=== PATIENT | female | born 1985 | race Caucasian/White ===

== ENCOUNTER 2021-02-18 13:24 | Outpatient (CLI) | payer BC, SELFPAY ==
--- NOTE | ~2021-02-18 | MR_ITS ---
EXAMINATION: MR pituitary wo/w con DATE: 02/18/2021 14:30 INDICATION: Hyperprolactinemia. TECHNIQUE: Magnetic resonance imaging (MRI) of the brain and brainstem was performed without and with 14 mL MultiHance intravenous contrast. Whole-brain sequences included sagittal T1-weighted FSE, axia l diffusion-weighted FS EPI, axial T2*-weighted GRE, axial T2-weighted FLAIR Propeller, and axial T2- weighted Propeller. Small eptlb-cp-mmtl sequences included sagittal and coronal T1-weighted FSE cente red at the pituitary. Postcontrast sequences included small vverd-sh-clej coronal T1-weighted FSE in a time course and sagittal T1-weighted FSE and whole-brain axial T1-weighted FSE. Apparent diffusion coefficient (ADC) maps were created. COMPARISON: None. FINDINGS: The pituitary is normal in size with height of 6 mm and concave superior margin. There are 3 foci of nonspecific increased T2-weighted signal intensity in the cerebral white matter, which is w ithin normal limits for the patient's age. There is no intracranial hemorrhage, acute infarction, or abnormal intracranial mass lesion. The ventricles are normal in size. The mastoid air cells are norm al. The paranasal sinuses are clear. The orbits are normal. IMPRESSION: 1. Normal brain. Normal pituitary. Reviewed, dictated and finalized at location B.
[2021-02-18 13:58] LABS: Estimated Glomerular Filt Rate > 60
== END 2021-02-18 13:25 | disposition home or self-care (01) ==
PROVIDERS: PCP Family Medicine; Visit Provider Obstetrics & Gynecology Gynecology
DX: E22.1 Hyperprolactinemia (principal)
CPT/HCPCS: 70553; A9577

== ENCOUNTER → 2021-02-25 13:14 | Outpatient (CLI) | payer BC, SELFPAY ==
--- NOTE | ~2021-02-25 | US_ITS ---
EXAMINATION: US thyroid DATE: 02/25/2021 13:39 INDICATION: Hypothyroidism. Fatigue. TECHNIQUE: Multiple ultrasound images of the thyroid were obtained. COMPARISON: None. FINDINGS: The right thyroid lobe measures 5.4 x 1.7 x 1.7 cm. The left thyroid lobe measures 4.0 x 1.2 x 1.6 c m. In the right thyroid lobe, there is an 11 mm solid, isoechoic, nahbw-zkxe-lklz nodule with ill-de fined margin without echogenic foci (TI-RADS TR3). In the right thyroid lobe, there is a 6 mm solid, hypoechoic, rqaxm-vjzp-nqjv nodule with ill-defined margin without echogenic foci (TR4). In the right thyroid lobe, there is a 1.5 cm solid, hypoechoic, rfuuv-zoku-lnep nodule with ill-defined margin wi thout echogenic foci (TR4). In the left thyroid lobe, there is an 8 mm solid, hypoechoic, wider-than- tall nodule with ill-defined margin without echogenic foci (TR4). IMPRESSION: 1. Thyroid nodules. Ultrasound-guided fine-needle aspiration of the 1.5 cm right thyroid nodule is re commended. Reviewed, dictated and finalized at location A. IMPRESSION: 1. Thyroid nodules. Ultrasound-guided fine-needle aspiration of the 1.5 cm righ t thyroid nodule is recommended.
== END ==
PROVIDERS: PCP Family Medicine; Visit Provider Nurse Practitioner
DX: E07.9 Disorder of thyroid, unspecified (principal); E03.9 Hypothyroidism, unspecified; E04.2 Nontoxic multinodular goiter
CPT/HCPCS: 76536

== ENCOUNTER 2021-04-20 15:46 | Outpatient (CLI) | payer BC, SELFPAY ==
[2021-05-12 18:34] VITALS: BMI 27.4
--- NOTE | 2021-05-12 18:34 | WPDHOMESLEEP ---
Sleep Study - Home Unattended Date of Study: 04/20/21 Ordering Provider: Jeri Paige MD Interpreting Provider: Jeri Paige MD Home Sleep Study Type: Apnea Link Air Height: 1.57 m Weight: 68.039 kg Body Mass Index: 27.4 Neck Circumference (inches): 13.25 [place]: 11 Reason for Sleep Study Hypersomnia Sleep History Laura Schroeder is a 35 year old female with fatigue for the last 2 years, initially noted while she was driving, then began happening all day. She has snoring and non-refreshing sleep. There is a family history of sleep diagnoses with her Mother falling asleep easily and her mother sister being treated for sleep apnea. She was treated for depression without improvement. She does not awaken from sleep feeling short of breath or awaken at night with heartburn, belching or coughing. She rarely snores and others do not really complain about it. She frequently has trouble sleeping if she has a cold. She does not gasp for breath at night, does not have breathing problems at night observed by others, does not sweat excessively at night or notice her heart pounding or beating irregularly at night. She occasionally falls asleep during the day but not involuntarily and not while driving. She does fall not have loss of muscle tone with strong emotion. She rarely has daytime difficulties due to excessive sleepiness. She does not currently feel paralyzed on waking or falling asleep. She does not have vivid dreamlike scenes upon awakening or falling asleep and does not feel afraid to go to sleep. She does not have nightmares. She rarely remembers her dreams. She occasionally has racing thoughts. She rarely feels sad or depressed. She occasionally has anxiety. She does not have muscular tension, does not notice parts of her body jerking and she does not kick at night. She frequently has crawling and aching feelings in her legs and leg pain during the night. She occasionally has morning jaw pain. She does not grind her teeth during sleep. She frequently has bothered by pain during the day. She rarely is awakened by pain at night. She frequently wakes up feeling stiff in the morning. She rarely wakes up with sore achy muscles. She frequently wakes up with pain in the neck and spine. She has headaches. Normal bedtime is 10:00 p.m., falling asleep within 15-20 minutes, waking once at night while tossing and turning. It takes her about 30 minutes to return to sleep. She wakes the morning at 6:30 a.m.. On the weekends, she goes to bed also at 10:00 p.m. but wakes at 8:30 a.m.. She does not typically take naps. Short naps are not refreshing. She is usually drowsy in the morning for 1 hour or longer. Habits: No tobacco. Caffeine 1-2 servings a day. Alcohol once per week. No recreational drugs. [facility] Past Medical History Medical History (Updated 05/12/21 @ 18:49 by Jeri Paige MD) VAN (generalized anxiety disorder) Nathalie's thyroiditis diagnosed age 8 MDD (major depressive disorder), recurrent episode, moderate MDD (major depressive disorder), recurrent episode, moderate Restless legs syndrome (RLS) Vitamin D deficiency, unspecified Surgical History Surgical History History of removal of ovarian cyst History of tonsillectomy Family History Family History Sibling Family history of mental disorder Patient's sister is in good health Mother Patient's mother is in good health Family history of malignant neoplasm of thyroid Father Family history of diabetes mellitus in first degree relative Social History Social History Social History: Smoking status: Never smoker Second hand tobacco smoke exposure: No Alcohol intake: current Drinks per week: 1 Substance use: never Substance use type: does not use [facility]
== END 2021-04-21 12:55 | disposition home or self-care (01) ==
LOC: ANHCSM 15:46
PROVIDERS: PCP Family Medicine; Visit Provider Internal Medicine Critical Care Medicine
DX: G47.10 Hypersomnia, unspecified (principal); G25.81 Restless legs syndrome
CPT/HCPCS: 95806

== ENCOUNTER → 2021-05-24 09:26 | Outpatient (CLI) | payer BC, SELFPAY ==
--- NOTE | ~2021-05-24 | US_ITS ---
EXAMINATION: US abdomen complete EXAM DATE: 05/24/2021 10:15 INDICATION: R74.8 - Abnormal levels of other serum enzymes. TECHNIQUE: Multiple grayscale and Doppler images of the complete abdomen were obtained (by a technolo gist who performed the scan) and subsequently reviewed. There is no prior study for comparison. FINDINGS: The abdominal aorta is normal in caliber. Visualized portion IVC is patent. The pancreatic head a nd body are normal in appearance. The pancreatic tail is not visualized. The liver has normal echogenicity and contour. There are no focal liver lesions identified. There is no evidence of intrahepatic biliary duct dilation. Portal venous flow was seen in the hepatopedal , normal direction and has normal Doppler waveform. Common bile duct measures 2 mm, which is normal. The gallbladder wall is normal in thickness, with ex pected amount of distention. No sonographic evidence of pericholecystic fluid. There is no cholelit hiases. Technologist performing exam reports patient did not demonstrate sonographic Hastings's sign. Please note that this sign is less reliable in patients who have received pain medication. Right kidney: There is normal contour and echogenicity. It measures 9.3 x 3.7 x 4.5 centimeters. T here are no focal renal lesions identified. There is no hydronephrosis. Left kidney: There is normal contour and echogenicity. It measures 9.8 x 5.7 x 4.4 centimeters. Th ere are no focal renal lesions identified. There is no hydronephrosis. The spleen measures 9.2 centimeters and is morphologically normal. IMPRESSION: 1. Unremarkable complete abdominal ultrasound exam. Reviewed, dictated and finalized at location B.
== END ==
PROVIDERS: PCP Physician Assistant; Visit Provider Physician Assistant
DX: R74.8 Abnormal levels of other serum enzymes (principal)
CPT/HCPCS: 76700

== ENCOUNTER → 2022-03-03 07:58 | Outpatient (CLI) | payer OTHER, SELFPAY ==
--- NOTE | ~2022-03-03 | MMUS_ITS ---
EXAMINATION: MM diagnostic martín BI w sebas, US breast LT limited HISTORY: Palpable lump of the lower inner left breast near the nipple TECHNIQUE: Craniocaudal, mediolateral, and mediolateral oblique 3-D tomosynthesis images of the left breast were performed and synthetic 2-D images were generated. CAD analysis was submitted and interpr eted. High resolution limited left breast ultrasound was performed. COMPARISON: 10/27/2014, 10/17/2014 BREAST PARENCHYMAL COMPOSITION: The breasts are heterogeneously dense, which may obscure small masses . FINDINGS: MAMMOGRAPHIC FINDINGS: There is no suspicious mass, calcification, or architectural distortion in either breast to suggest malignancy. There has been no suspicious interval change. No mammographic correlate is identified for the reported palpable abnormality of the left breast. ULTRASOUND: There is no evidence of focal abnormal solid or cystic mass in the vicinity of the reported palpable abnormality of concern in the left breast. IMPRESSION: 1. No specific mammographic or sonographic correlate is identified for the reported palpable abnormal ity of concern of the left breast. Further evaluation at this time should be based on clinical assess ment. Continued follow-up physical examination is recommended. 2. Recommend routine screening mammography beginning at age 40. BI-RADS Category 1: Negative Reviewed, dictated and finalized at location A. IMPRESSION: 1. No specific mammographic or sonographic correlate is identified for the repo rted palpable abnormality of concern of the left breast. Further evaluation at this time should be based on clinical assessment. Continued follow-up physical examination is recommended. 2. Recommend routine screening mammography beginning at age 40. BI-RADS Category 1: Negative
== END ==
PROVIDERS: PCP Family Medicine; Visit Provider Nurse Practitioner
DX: N63.24 Unspecified lump in the left breast, lower inner quadrant (principal)
CPT/HCPCS: 76642; 77062; 77066; G0279

== ENCOUNTER → 2022-03-17 08:19 | Outpatient (CLI) | payer OTHER, SELFPAY ==
--- NOTE | ~2022-03-17 | MR_ITS ---
EXAMINATION: MR pituitary wo/w con DATE: 03/17/2022 09:19 INDICATION: Hyperprolactinemia. TECHNIQUE: Magnetic resonance imaging (MRI) of the brain and brainstem was performed without and with 14 mL MultiHance intravenous contrast. COMPARISON: Brain MRI 02/18/2021 FINDINGS: The pituitary is normal in size with height of 5 mm and concave superior margin. The infund ibulum is at midline. There is no intracranial hemorrhage, acute infarction, or abnormal intracranial mass lesion. The ventricles are normal in size. The paranasal sinuses are clear. The mastoid air aliya ls are normal. The orbits are normal. IMPRESSION: 1. Normal brain. Normal pituitary. Reviewed, dictated and finalized at location A.
[2022-03-17 08:48] LABS: Estimated Glomerular Filt Rate > 60
== END ==
PROVIDERS: PCP Family Medicine; Visit Provider Obstetrics & Gynecology Gynecology
DX: E22.1 Hyperprolactinemia (principal)
CPT/HCPCS: 70553; A9577

== ENCOUNTER → 2022-11-18 11:13 | Outpatient (CLI) | payer OTHER, SELFPAY ==
--- NOTE | ~2022-11-18 | US_ITS ---
Pelvic ultrasound. Clinical History: Pelvic pain Technique: Realtime transabdominal and transvaginal scanning of the pelvis was performed. Color flow Doppler and Doppler spectral analysis were performed. Findings: The uterus is anteverted. The endometrial stripe has a thickness of 3 mm. IUD appears to b e within satisfactory position. No focal mass is identified. The right ovary measures 3.8 x 2.7 x 3.2 cm. No significant right ovarian or adnexal mass is seen. The left ovary measures 3.2 x 2.5 x 3.3 cm. No significant left ovarian or adnexal mass is seen. Vascular flow present in both ovaries on Doppler spectral analysis. There is no evidence of free fluid in the cul de sac. Impression: IUD appears to be in place. No other significant findings. Reviewed, dictated and finalized at [facility]. LANCE ARTIST Impression: IUD appears to be in place. No other significant findings.
== END ==
PROVIDERS: PCP Family Medicine; Visit Provider Obstetrics & Gynecology Gynecology
DX: R10.2 Pelvic and perineal pain (principal); Z97.5 Presence of (intrauterine) contraceptive device
CPT/HCPCS: 76856

== ENCOUNTER → 2023-03-09 07:53 | Outpatient (CLI) | payer OTHER, SELFPAY ==
--- NOTE | ~2023-03-09 | MMUS_ITS ---
EXAMINATION: MM diagnostic martín BI w sebas, US breast BI complete HISTORY: Bilateral breast pain intermittently for 2 months, involving lateral breasts, extending into axillae TECHNIQUE: ML, MLO and CC 3-D tomosynthesis images of both breasts were performed and synthetic 2-D i mages were generated. Magnification views of right breast. CAD analysis was submitted and interpreted . High resolution bilateral complete breast ultrasound examination including all 4 quadrants and suba reolar areas was performed. COMPARISON: 03/03/2022 bilateral diagnostic mammogram and limited left breast ultrasound examination BREAST PARENCHYMAL COMPOSITION: The breasts are heterogeneously dense, which may obscure small masses . FINDINGS: MAMMOGRAPHIC FINDINGS: Occasional bilateral benign appearing microcalcifications. No suspicious mass or architectural distor tion, malignant calcification, skin thickening or retraction or significant new or developing density is detected. . ULTRASOUND: No suspicious mass or shadowing of either breast is evident. Circumscribed 2 x 3 mm hypoechoic lesion of left breast at 3:00 1 cm from the nipple, without interna l vascularity or posterior shadowing, benign in appearance. IMPRESSION: 1. Benign findings 2. Routine annual mammographic screening is recommended BI-RADS Category 2: Benign finding(s). Reviewed, dictated and finalized at location A. IMPRESSION: 1. Benign findings 2. Routine annual mammographic screening is recommended BI-RADS Category 2: Benign finding(s).
== END ==
PROVIDERS: PCP Family Medicine; Visit Provider Nurse Practitioner
DX: N64.4 Mastodynia (principal)
CPT/HCPCS: 76641; 77062; 77066; G0279

== ENCOUNTER 2023-04-06 08:39 | Outpatient (CLI) | payer OTHER, SELFPAY ==
--- NOTE | ~2023-04-06 | XR_ITS ---
EXAMINATION: XR abdomen/kub 1V INDICATION: Pelvic pain and bloating TECHNIQUE: Supine views of the abdomen were obtained on 2 radiographs. COMPARISON: None FINDINGS: A moderate volume of colonic stool is present. The bowel gas pattern is normal. An IUD is n oted. The visualized lung bases are clear. IMPRESSION: 1. No radiographic correlate for the patient's symptoms. Reviewed, dictated and finalized at location L.
== END 2023-04-06 08:40 | disposition home or self-care (01) ==
PROVIDERS: PCP Family Medicine; Visit Provider Family Medicine
DX: R19.8 Other specified symptoms and signs involving the digestive system and abdomen (principal); R10.32 Left lower quadrant pain
CPT/HCPCS: 74018

== ENCOUNTER → 2023-09-15 13:28 | Outpatient (CLI) | payer OTHER, SELFPAY ==
--- NOTE | ~2023-09-15 | CT_ITS ---
CT of the Abdomen and Pelvis: Indication: Left lower quadrant Technique: 2.5 mm axial scans were obtained through the abdomen and pelvis following intravenous adm inistration of 100 cc of Omnipaque 350. Dose reduction technique was used on this scan by utilizing a utomated exposure control and iterative reconstruction technique. The dose-length product (DLP) was 5 08.17 mGy-cm. Findings: Scans through the lung bases are unremarkable. The liver, spleen, pancreas, gallbladder, adrenals and kidneys are within normal limits. No evidence of aortic aneurysm. No lymphadenopathy. No bowel obstruction or bowel wall thickening. There is no evidence to suggest acute appendicitis. Images through the pelvis were performed. Urinary bladder unremarkable. IUD in place. No adnexal mass seen. No ascites. Impression: IUD in place, otherwise unremarkable exam. Reviewed, dictated and finalized at [facility]. OR DIRECTOR FINANCE Impression: IUD in place, otherwise unremarkable exam.
== END ==
PROVIDERS: PCP Physician Assistant; Visit Provider Physician Assistant
DX: R10.32 Left lower quadrant pain (principal); R19.8 Other specified symptoms and signs involving the digestive system and abdomen; Z97.5 Presence of (intrauterine) contraceptive device
CPT/HCPCS: 74177; Q9967

== ENCOUNTER 2024-02-12 11:53 | Outpatient (CLI) | payer OTHER, SELFPAY ==
--- NOTE | ~2024-02-12 | XR_ITS ---
XR chest 2V DATE: 02/12/2024 12:14 INDICATION: Dyspnea TECHNIQUE: 2 views COMPARISON: None FINDINGS: Normal heart size. Bilateral hyperinflation. No pulmonary infiltrate or consolidation, pleu ral effusion or pulmonary vascular congestion or pneumothorax is detected. IMPRESSION: Bilateral hyperinflation; no active pulmonary disease Reviewed, dictated and finalized at location B.
== END 2024-02-12 11:54 ==
LOC: MICIMG 11:55
PROVIDERS: PCP Family Medicine; Visit Provider Physician Assistant
DX: J98.4 Other disorders of lung (principal)
CPT/HCPCS: 71046

== ENCOUNTER 2024-04-12 08:53 | Outpatient (CLI) | payer OTHER, SELFPAY ==
--- NOTE | 2024-04-12 16:23 | P.PCNPFT_ITS ---
PFT Procedure Performed PFT Procedure Performed Spirometry with Pre/Post Bronchodilator Plethysmography (Lung Vol) Diffusing Cap (DLCO) Flow Vol Loop PFT Interpretation DOS: 04/12/2024 REQUESTING: Domitila Weir PA-C REASON FOR TESTING: asthma PULMONARY FUNCTION TESTS Results are reliable and reproducible. Repeatability of spirometry FEV1 maneuver pre and post bronchodilator is Grade A. Spirometry: The pre-bronchodilator FEV1 is 3.14 L, 108%, normal. The pre- bronchodilator FVC is 3.79 L, 107%, normal. The FEV1/FVC ratio is 83%. After bronchodilator, the FEV1 is 3.16 L, 108%, no change. The bronchodilator FVC is 3.72 L, 105%, -2%. The FEV1/FVC ratio is 85%. Lung volumes: The total lung capacity is 4.31 L, 88%. The residual volume is 0.52 L, 34%, below the lower limit of normal. The RV/TLC is 12%. FRC 2.12 L, 79%, normal. Airway resistance is normal Diffusion: DLCO is 21.6, 92%. The DLCO/VA is 4.75, 99%. Flow volume loop: The flow volume loop is normal. IMPRESSION: This study shows normal spirometry without airflow obstruction, no response to bronchodilator, normal lung volumes and normal diffusion. Lack of response to bronchodilator should not preclude use if clinically indicated. No prior studies for comparison. Jeri Paige MD
== END 2024-04-12 08:54 | disposition home or self-care (01) ==
PROVIDERS: PCP Family Medicine; Visit Provider Physician Assistant
DX: J45.909 Unspecified asthma, uncomplicated (principal)
CPT/HCPCS: 94060; 94726; 94729

== ENCOUNTER 2024-05-10 13:35 | Outpatient (CLI) | payer OTHER, SELFPAY ==
--- NOTE | ~2024-05-10 | US_ITS ---
EXAMINATION: US thyroid DATE: 05/10/2024 13:57 INDICATION: Multinodular goiter. TECHNIQUE: Multiple ultrasound images of the thyroid were obtained. COMPARISON: Ultrasound 02/25/2021 FINDINGS: The right thyroid lobe measures 5.7 x 1.8 x 1.7 cm. The left thyroid lobe measures 4.5 x 1.5 x 1.5 c m. In the right thyroid lobe, there is a 9 mm solid, isoechoic, wider than tall nodule with ill-defi devaughn margin without echogenic foci (TI-RADS TR3). In the right thyroid lobe, there is an 8 mm mixed cy stic and solid, isoechoic, wider than tall nodule with ill-defined margin without echogenic foci (TR2 ). In the left thyroid lobe, there is a 6 mm solid, isoechoic, wider than tall nodule with smooth mar gin without echogenic foci (TR3). IMPRESSION: 1. Small thyroid nodules, likely not clinically significant. No follow-up is needed. Reviewed, dictated and finalized at location A. IMPRESSION: 1. Small thyroid nodules, likely not clinically significant. No follow-up is ne eded.
== END 2024-05-10 13:36 ==
PROVIDERS: PCP Family Medicine
DX: E04.2 Nontoxic multinodular goiter (principal)
CPT/HCPCS: 76536

== ENCOUNTER 2024-09-03 12:46 | Outpatient (CLI) | payer OTHER, SELFPAY ==
--- NOTE | ~2024-09-03 | MM_ITS ---
EXAMINATION: MM screening martín BI w sebas HISTORY: Screening TECHNIQUE: Craniocaudal and mediolateral oblique 3-D tomosynthesis images were obtained and synthetic 2-D images were generated. CAD analysis was submitted and interpreted. COMPARISON: Comparison to multiple prior studies sequentially, with oldest reviewed study dated 10/17. BREAST PARENCHYMAL COMPOSITION: Dense: The breasts are heterogeneously dense, which may obscure small masses FINDINGS: There is no evidence of suspicious mass, calcification, or architectural distortion to sugg est malignancy in either breast. There has been no suspicious interval change. IMPRESSION: 1. No mammographic evidence of malignancy. 2. Recommend routine screening mammography in one year. BI-RADS Category 1: Negative Reviewed, dictated and finalized at location B. SCRIPT EDITOR
== END 2024-09-03 12:47 | disposition home or self-care (01) ==
PROVIDERS: PCP Family Medicine; Visit Provider Nurse Practitioner
DX: Z12.31 Encounter for screening mammogram for malignant neoplasm of breast (principal)
CPT/HCPCS: 77063; 77067

== ENCOUNTER 2025-03-17 09:22 | Outpatient (CLI) | payer OTHER, SELFPAY ==
--- NOTE | ~2025-03-17 | NM_ITS ---
EXAMINATION: NM stress w perf spect multi DATE: 03/17/2025 11:59 INDICATION: Unspecified asthma TECHNIQUE: Rest images were obtained following intravenous administration of 9.9 mCi Tc99m tetrofosmi n ([employer]). The patient performed an exercise activity. At peak exercise, 31.2 mCi Tc99m tetrofosmin ([employer]) was administered intravenously, and stress images were obtained. Data was reconstructed in to short axis and horizontal and vertical long axis SPECT images. Gated SPECT images were also obtain ed. COMPARISON: None. FINDINGS: There is normal left ventricular perfusion without definite evidence of reversible or fixed perfusion abnormality to suggest ischemia or infarction. There is normal left ventricular chamber size, wall motion and ejection fraction. Left ventricular ejection fraction measures >70%. IMPRESSION: 1. Normal myocardial perfusion at rest and during stress. 2. Left ventricular ejection fraction measuring >70%. Reviewed, dictated and finalized at location A.
--- NOTE | 2025-03-17 09:30 | EST_ITS ---
Patient Info Name: Laura Schroeder Age: 39 years : 1985 Gender: Female Ht: 62 in Wt: 156 lbs BSA: 1.78 m2 HR: 57 bpm BP: 104 / 69 mmHg Exam Date: 03/17/2025 9:30 AM Patient Status: O Admit Date: 03/17/2025 Exam Type: CA stress test treadmill w NM A nuclear stress test was performed. A nuclear stress test was performed. Staff Referring Physician: Domitila CAMARENA Attending Provider: Domitila CAMARENA Exercise Technologist: Fauzia Bermudez Summary 1. 1. Negative Jonh exercise stress test for ischemic ST changes by ECG criteria. 2. 2. Good functional capacity, achieving 10 METs of workload. 3. 3. Appropriate HR response to exercise. 4. 4. Appropriate HR recovery at 1 minute post exercise. 5. 5. Nuclear scan to follow and will be reported separately. Please correlate with it. 6. 6. Patient informed of the above results. Protocol: Jonh Stress ECG Details Stage: REST Duration (min): 0 min : 53 sec Speed (mph): 0.0 Grade (%): 0 HR (bpm): 57 SBP (mmHg): 104 DBP (mmHg): 69 METS: --- Stage: REST Duration (min): 9 min : 50 sec Speed (mph): 0.0 Grade (%): 0 HR (bpm): 98 SBP (mmHg): 104 DBP (mmHg): 69 METS: --- Stage: STAGE 1 Duration (min): 1 min : 0 sec Speed (mph): 1.7 Grade (%): 10 HR (bpm): 109 SBP (mmHg): 104 DBP (mmHg): 69 METS: --- Stage: STAGE 1 Duration (min): 2 min : 0 sec Speed (mph): 1.7 Grade (%): 10 HR (bpm): 114 SBP (mmHg): 104 DBP (mmHg): 69 METS: --- Stage: STAGE 1 Duration (min): 3 min : 0 sec Speed (mph): 1.7 Grade (%): 10 HR (bpm): 112 SBP (mmHg): 109 DBP (mmHg): 64 METS: --- Stage: STAGE 2 Duration (min): 1 min : 0 sec Speed (mph): 2.5 Grade (%): 12 HR (bpm): 126 SBP (mmHg): 109 DBP (mmHg): 64 METS: --- Stage: STAGE 2 Duration (min): 2 min : 0 sec Speed (mph): 2.5 Grade (%): 12 HR (bpm): 136 SBP (mmHg): 112 DBP (mmHg): 66 METS: --- Stage: STAGE 2 Duration (min): 3 min : 0 sec Speed (mph): 2.5 Grade (%): 12 HR (bpm): 134 SBP (mmHg): 112 DBP (mmHg): 66 METS: --- Stage: STAGE 3 Duration (min): 1 min : 0 sec Speed (mph): 3.4 Grade (%): 14 HR (bpm): 148 SBP (mmHg): 117 DBP (mmHg): 65 METS: --- Stage: STAGE 3 Duration (min): 2 min : 0 sec Speed (mph): 3.4 Grade (%): 14 HR (bpm): 146 SBP (mmHg): 117 DBP (mmHg): 65 METS: --- Stage: STAGE 3 Duration (min): 3 min : 0 sec Speed (mph): 3.4 Grade (%): 14 HR (bpm): 159 SBP (mmHg): 118 DBP (mmHg): 66 METS: --- Stage: RECOVERY Duration (min): 0 min : 59 sec Speed (mph): 0.0 Grade (%): 0 HR (bpm): 125 SBP (mmHg): 118 DBP (mmHg): 66 METS: --- Stage: RECOVERY Duration (min): 1 min : 59 sec Speed (mph): 0.0 Grade (%): 0 HR (bpm): 104 SBP (mmHg): 118 DBP (mmHg): 66 METS: --- Stage: RECOVERY Duration (min): 2 min : 59 sec Speed (mph): 0.0 Grade (%): 0 HR (bpm): 101 SBP (mmHg): 121 DBP (mmHg): 72 METS: --- Stage: RECOVERY Duration (min): 3 min : 2 sec Speed (mph): 0.0 Grade (%): 0 HR (bpm): 101 SBP (mmHg): 121 DBP (mmHg): 72 METS: --- Rest HR: 98 bpm Peak HR: 159 bpm Rest Sys BP: 104 mmHg Peak Sys BP: 121 mmHg Max Pred HR: 179 bpm % Max Pred HR: 89 % Target HR: 152 bpm Max RPP: 19,239 bpm*mmHg Carmona Score: 3 Termination Reason: Reached target heart rate or workload Cardiac Symptoms: Shortness of breath Max ST Seg Deviation: 1.30 mm Total Time: 9 min : 0 sec Rest Moffett BP: 69 mmHg Peak Moffett BP: 72 mmHg Angina Score: None Total METS: 10.3 Resting ECG Sinus rhythm. Stress ECG No ST changes. Arrhythmias None. Report Signatures
== END 2025-03-17 09:23 | disposition home or self-care (01) ==
PROVIDERS: PCP Family Medicine; Visit Provider Physician Assistant
DX: J45.909 Unspecified asthma, uncomplicated (principal)
CPT/HCPCS: 78452; 93017; A9502